=== PATIENT | male | born 1985 | race Caucasian/White ===

== ENCOUNTER 2017-08-21 11:50 | Emergency (ER) | payer MEDICAID ==
[~2017-08-21] VITALS: Ht 185.4 cm; Wt 88.5 kg
[~2017-08-21 11:50] MED LIST: CRUTCH1 EACH MC; NORCO 5-325 TA1 EACH PO
[2017-08-21] MEDS ORDERED: NORCO 7.5-3251 EACH PO (15:45)
[2017-08-21] MEDS ORDERED: ROBAXIN-750750 MG PO (15:45)
== END 2017-08-21 15:52 | disposition home or self-care (01) ==
LOC: ED 11:50
DX: S39.012A Strain of muscle, fascia and tendon of lower back, initial encounter (principal); X58.XXXA Exposure to other specified factors, initial encounter; F17.200 Nicotine dependence, unspecified, uncomplicated
CPT/HCPCS: 96372; 99283; J1885

== ENCOUNTER 2021-11-03 17:04 | Emergency (ER) | payer OTHER ==
[~2021-11-03] VITALS: Ht 185.4 cm; Wt 88.5 kg
[~2021-11-03 17:04] MED LIST changes: +NORCO 7.5-3251 EACH PO; +ROBAXIN-750750 MG PO
== END 2021-11-03 19:00 | disposition home or self-care (01) ==
LOC: ED 17:04
DX: S20.211A Contusion of right front wall of thorax, initial encounter (principal); W22.8XXA Striking against or struck by other objects, initial encounter; F17.200 Nicotine dependence, unspecified, uncomplicated
CPT/HCPCS: 71046; 99283-25; A9270

== ENCOUNTER 2022-03-15 07:05 | Day surgery (SDC) | payer OTHER ==
[~2022-03-15] VITALS: Ht 185.4 cm; Wt 102.1 kg
[~2022-03-15 07:05] MED LIST changes: +ADULT GLYCERIN1 EACH PR; +CARDIZEM30 MG; +HYDROCODON-ACE1 EA10 PO; +HYDROXYZINE HCL25 MG PO; +SERTRALINE HCL25 MG PO
[2022-03-15] MEDS ORDERED: ALEVE220 M1 PO (07:28)
--- NOTE | 2022-03-15 08:22 | NUR ---
PT HERE FOR HIS FIRST SCOPE, FIRST MED PROCEDURE OF ANY KIND. PT IS ALERT, ORIENTED AND HOPING SCOPE WILL REVEAL SOURCE OF HIS ISSUES. GAVE COMFORT, PT DECLINED PRAYER AT THIS TIME. PTS' BRO WILL BE HERE AT [place]. WILL FOLLOW.
--- NOTE | 2022-03-15 08:48 | NUR ---
03/15/22 0848 Bridget Gifford 0840 PATIENT ARRIVES TO PACU SLEEPING, AWAKENS WITH VERBAL STIMULI, FOLLOWS COMMANDS TO TAKE DEEP BREATH, BACK TO SLEEP WHEN NOT STIMULATED. LIGHT SNORE WHEN SLEEPING. RESP EVEN AND UNLABORED, PATIENT DESATS TO 91% ON 4L VIA NC, AWAKENS AND FOLLOWS COMMANDS TO TAKE DEEP BREATHS. PASSING GAS.
--- NOTE | 2022-03-16 08:26 | OR ---
[facility] [address], [place] [address] Signed DATE OF OPERATION: 03/15/2022 SURGEON: Salvador Thomas MD PREOPERATIVE DIAGNOSES: 1. Anal burning. 2. Chronic back issues. 3. Chronic frequent daily bowel movements (8-10 per day). 4. Posterior midline anal fissure (3 x 4 mm). 5. Minimal sigmoid diverticulosis. PROCEDURES: Colonoscopy with random cold biopsies of the colon and rectum. ESTIMATED BLOOD LOSS: None. INDICATIONS: Myesha is a 36-year-old gentleman, asked to see me for burning sensation of the anus. He had gone into a fair amount of detail about his chronic back issues for years. He follows along with his chiropractor since he was 21 years old. He said he has bone spurs. He thinks at one point, even went to a neurosurgeon in the [facility]. He also describes frequent loose bowel movements up to 8-12 in a day. 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 He participates in our local professional [employer] every year. He was sitting in the was let loose and actually stomped him right over his right shoulder blade. He said it hurt his back. He said he did not have pain in the anus right away. A week or two later, he felt quite a bit of burning in this hot sensation. He thinks it is on the left side. He went to his chiropractor for adjustment, this did not help. He said not every bowel movement or wiping causes pain. He has been using Aleve and ibuprofen with good results. He on-line reading and is convinced himself he has an anal fissure. He had gone to his primary care provider. He tried glycerin suppositories, fiber and lidocaine cream without any improvement. He said the nitroglycerin was over 700 dollar, so he did not purchase it. He said he purchased ahjv-[id number]-dnoicdh stool softener and it has not helped either. He therefore came to see me with respect to the above at the recommendation of his primary care provider. He said he would not be able to tolerate a digital rectal exam or the anoscope in the office. We decided we would take him to the endoscopy suite with sedation for his colonoscopy as well as the rectal exam. I gave him our brochure on colonoscopy. We had reviewed the test together. He understands there is risk including, but not limited to gas bloating, crampy abdominal pain, bleeding, perforation Electronically Signed By: SALVADOR THOMAS MD 03/16/22 0826 PATIENT NAME: MYESHA CHO BRUCE II OPERATIVE REPORT DATE OF : 89 REPORT #: [id number] PHYSICIAN: SALVADOR THOMAS MD PCP: BILLIE PRICE MD REPORT IS CONFIDENTIAL AND NOT TO BE RELEASED WITHOUT AUTHORIZATION [address] [address] Signed requiring surgery, and missed diagnosis. We also reviewed the written instructions for the bowel prep. He understands the need for IV conscious sedation. He had expressed understanding and wished to proceed. DESCRIPTION OF PROCEDURE: Myesha was taken into our endoscopy suite and placed in the left lateral decubitus position. He was given a total of 5 mg of Versed and 125 mcg of fentanyl to cover the case. A digital rectal exam was performed with the help of our nurse shining the light. We could easily see a small posterior midline anal fissure. It is about 3 mm wide x 4 or 5 mm in length. He has excellent perianal hygiene. No external hemorrhoids. As expected, he has excellent anal sphincter tone. There were no masses. The adult colonoscope was introduced and advanced all around into the cecum under direct visualization of camera without difficulty. His prep was quite excellent. We could easily see the appendiceal orifice and the ileocecal valve. The scope was then slowly withdrawn. He had a few diverticula scattered throughout the colon. There were no inflammatory changes. We went ahead and took several random biopsies out of the colon and the rectum because of the history of frequent daily bowel movements. Again, he has no family history of inflammatory bowel disease. Once in the rectum, the scope had been retroflexed and there was no additional pathology noted above the anal canal except for some very minimal standard internal hemorrhoid tissue. After this, the gas was suctioned out, colonoscope removed. Myesha tolerated the procedure quite well. RECOMMENDATIONS: I will see Myesha back in the office in 7 to 14 days to review his results including the small posterior midline anal fissure. Salvador Thomas MD [facility]/MODL /[id number] cc: Patient Chart MD Dr. Billie Pfeiffer Electronically Signed By: SALVADOR THOMAS MD 03/16/22 0826 PATIENT NAME: MYESHA CHO II OPERATIVE REPORT DATE OF : 89 REPORT #: [id number] PHYSICIAN: SALVADOR THOMAS MD PCP: BILLIE PRICE MD REPORT IS CONFIDENTIAL AND NOT TO BE RELEASED WITHOUT AUTHORIZATION [address] [address] Signed Copies: SALVADOR THOMAS MD ~ Electronically Signed By: SALVADOR THOMAS MD 03/16/22 0826 PATIENT NAME: MYESHA CHO II OPERATIVE REPORT DATE OF : 89 REPORT #: [id number] PHYSICIAN: SALVADOR THOMAS MD PCP: BILLIE PRICE MD REPORT IS CONFIDENTIAL AND NOT TO BE RELEASED WITHOUT AUTHORIZATION
--- NOTE | 2022-03-19 15:59 | PATH ---
[facility] [address] [place] [address] Signed SPECIMEN(S): A COLON BIOPSY SPECIMEN(S): B RECTUM SPECIMEN SOURCE: A. COLON BIOPSY B. RECTUM CLINICAL HISTORY: Diarrhea, anal pain. Post: Posterior midline anal fissure, diverticulosis FINAL PATHOLOGIC DIAGNOSIS: A. Colon biopsy: - Benign colonic mucosa. - Negative for pathologic inflammation or dysplasia. B. Rectum, biopsy: - Benign colonic mucosa with slight hyperplastic features (one fragment). JVR:[facility]:C2NR MICROSCOPIC EXAMINATION: Histologic sections of all submitted blocks are examined by light microscopy. These findings, together with the gross examination, support the pathologic diagnosis. GROSS DESCRIPTION: A. The specimen, labeled and designated "Cho, W, 1," and designated on the requisition "colon biopsy," is received in formalin and consists of three castellanos soft tissue fragments that measure 0.6 to 1.1 cm in greatest dimension. The specimen is entirely submitted in (A1). B. The specimen, labeled and designated "Cho, W, 2," and designated on the requisition "rectum biopsy," is received in formalin and consists of one castellanos soft tissue fragment that is 0.5 cm in greatest dimension. The specimen is entirely submitted in (B1). FB (under the direct supervision of a pathologist) The Gross Description was prepared using a voice recognition system. The report was reviewed for accuracy; however, sound-alike word errors, addition and/or deletions may occur. If there is any question about this report, please contact Client Services. PERFORMING LABORATORY: The technical component was performed by [facility], [address] [place] [id number] (CLIA# [id number]). Professional interpretation was PATIENT NAME: MYESHA CHO II PATHOLOGY DATE OF : 89 REPORT #: [id number] PHYSICIAN: [facility] PCP: SKINNY PRICE MD REPORT IS CONFIDENTIAL AND NOT TO BE RELEASED WITHOUT AUTHORIZATION [facility] [address] [place] [id number] Signed performed by [facility] [address] [place] [address] (CLIA#: [id number]). Diagnostician: Kartik Johnson MD Pathologist Electronically Signed 03/19/2022 Copies: ~ PATIENT NAME: MYESHA CHO II PATHOLOGY DATE OF : 89 REPORT #: [id number] PHYSICIAN: [facility] PCP: SKINNY PRICE MD REPORT IS CONFIDENTIAL AND NOT TO BE RELEASED WITHOUT AUTHORIZATION
== END 2022-03-15 09:30 | disposition home or self-care (01) ==
LOC: DS 07:05
PROVIDERS: ATTEND Colon & Rectal Surgery
PROC: 0DBE8ZX Excision of Large Intestine, Via Natural or Artificial Opening Endoscopic, Diagnostic (ICD-10-PCS; 2022-03-15)
PROC: 0DBP8ZX Excision of Rectum, Via Natural or Artificial Opening Endoscopic, Diagnostic (ICD-10-PCS; principal; 2022-03-15 08:15)
DX: K60.2 Anal fissure, unspecified (principal); K57.30 Diverticulosis of large intestine without perforation or abscess without bleeding; G89.29 Other chronic pain; M54.9 Dorsalgia, unspecified
CPT/HCPCS: 99153; G0500; J2250; J3010; J7121

== ENCOUNTER 2024-03-20 10:59 | Emergency (ER) | payer OTHER ==
[~2024-03-20] VITALS: Ht 185.4 cm; Wt 103.0 kg
[~2024-03-20 10:59] MED LIST changes: +ALEVE220 M1 PO
[2024-03-20] MEDS ORDERED: diphenhydrAMINE HCL 50 MG/ML VIAL IV ONE (12:15)
[2024-03-20] MEDS ORDERED: SODIUM CHLORIDE 0.9% 1,000 ML IV ONE (12:15)
[2024-03-20] MEDS ORDERED: KETOROLAC TROMETHAMINE 30 MG/ML VIAL IV ONE (12:15)
[2024-03-20] MEDS ORDERED: ondansetron HCL 4 MG/2 ML VIAL IV PRN (12:15)
[2024-03-20 13:16] VITALS: BP 122/86
== END 2024-03-20 13:00 | disposition home or self-care (01) ==
LOC: ED 10:59
DX: R51.9 Headache, unspecified (principal); F17.200 Nicotine dependence, unspecified, uncomplicated; Z79.899 Other long term (current) drug therapy
CPT/HCPCS: 96374; 96375; 99283-25; J1200; J1885; J2405; J7030